=== PATIENT | male | born 1975 | race Caucasian/White ===

== ENCOUNTER 2018-01-28 22:22 | Emergency (ER) | payer SELFPAY ==
[2018-01-28 22:50] VITALS: Ht 160 cm
[2018-01-29 00:15] VITALS: BP 125/96
== END 2018-01-29 00:33 | disposition home or self-care (01) ==
LOC: ED 22:22
DX: S01.01XD Laceration without foreign body of scalp, subsequent encounter (principal); X58.XXXD Exposure to other specified factors, subsequent encounter